=== PATIENT | female | born 1950 | race Caucasian/White ===

== ENCOUNTER → 2017-03-08 | Outpatient (CLI) | payer MEDICARE, OTHER | END | disposition home or self-care (01) | LOC: LAB.O 07:19 | PROVIDERS: ATTEND Family Medicine | DX: Z79.899 Other long term (current) drug therapy (principal); I10 Essential (primary) hypertension ==

== ENCOUNTER → 2017-11-27 | Outpatient (CLI) | payer MEDICARE, OTHER | LOC: LAB.O 07:22 | PROVIDERS: ATTEND Family Medicine | DX: E78.5 Hyperlipidemia, unspecified (principal); N18.2 Chronic kidney disease, stage 2 (mild); Z79.899 Other long term (current) drug therapy ==

== ENCOUNTER 2018-01-03 05:27 | Day surgery (SDC) | payer MEDICARE, OTHER ==
[2018-01-03] MEDS ORDERED: PROPARACAINE 0.5% OPHTH SOL 15 ML BTTL ONE (05:56)
[2018-01-03] MEDS ORDERED: TROP 1%/CYCLOPEN 1%/PHENYL 2% DROPS ONE (05:56)
[2018-01-03] MEDS ORDERED: MIDAZOLAM INJ 2 MG/2 ML VIAL ONE (07:34)
[2018-01-03] MEDS ORDERED: PROPARACAINE 0.5% OPHTH SOL 15 ML BTTL LEFT_EYE ONE (07:55)
[2018-01-03] MEDS ORDERED: LIDOCAINE 1% PF 2 ML AMP INJ ONE ×2 (08:06→08:20)
[2018-01-03] MEDS ORDERED: DEXAMETHASONE 0.1% OPHTH SOL 1 DROP LEFT_EYE ONE ×2 (08:07→08:24)
[2018-01-03] MEDS ORDERED: TOBRAMYCIN SULF 0.3 % OPHT SOL 1 DROP LEFT_EYE ONE ×2 (08:07→08:24)
[2018-01-03] MEDS ORDERED: BRIMONIDINE 0.2% OPHTH DROPS LEFT_EYE ONE ×2 (08:08→08:24)
== END 2018-01-03 09:10 | disposition home or self-care (01) ==
LOC: AMB 05:27
PROVIDERS: ATTEND Ophthalmology
DX: H25.12 Age-related nuclear cataract, left eye (principal); I10 Essential (primary) hypertension; J44.9 Chronic obstructive pulmonary disease, unspecified; I25.2 Old myocardial infarction; Z87.891 Personal history of nicotine dependence; Z91.041 Radiographic dye allergy status; Z88.2 Allergy status to sulfonamides; Z79.82 Long term (current) use of aspirin; Z79.899 Other long term (current) drug therapy
CPT/HCPCS: 00142; 66984; J2250

== ENCOUNTER 2018-01-17 06:03 | Day surgery (SDC) | payer MEDICARE, OTHER ==
[~2018-01-17 06:03] MED LIST: PROPARACAINE 0.5% OPHTH SOL 15 ML BTTL ONE; TROP 1%/CYCLOPEN 1%/PHENYL 2% DROPS ONE
[2018-01-17] MEDS ORDERED: MIDAZOLAM INJ 2 MG/2 ML VIAL ONE ×2 (07:42→08:06)
[2018-01-17] MEDS ORDERED: PROPARACAINE 0.5% OPHTH SOL 15 ML BTTL RIGHT_EYE ONE (07:55)
[2018-01-17] MEDS ORDERED: DEXAMETHASONE 0.1% OPHTH SOL 1 DROP RIGHT_EYE ONE ×3 (08:04→08:20)
[2018-01-17] MEDS ORDERED: LIDOCAINE 1% PF 2 ML AMP INJ ONE ×2 (08:04→08:08)
[2018-01-17] MEDS ORDERED: TOBRAMYCIN SULF 0.3 % OPHT SOL 1 DROP RIGHT_EYE ONE ×3 (08:05→08:20)
[2018-01-17] MEDS ORDERED: BRIMONIDINE 0.2% OPHTH DROPS RIGHT_EYE ONE ×3 (08:05→08:20)
== END 2018-01-17 09:01 | disposition home or self-care (01) ==
LOC: AMB 06:03
PROVIDERS: ATTEND Ophthalmology
DX: H25.12 Age-related nuclear cataract, left eye (principal); I10 Essential (primary) hypertension; I25.10 Atherosclerotic heart disease of native coronary artery without angina pectoris; Z88.2 Allergy status to sulfonamides; Z88.8 Allergy status to other drugs, medicaments and biological substances
CPT/HCPCS: 66984; J2250

== ENCOUNTER → 2018-08-06 | Outpatient (CLI) | payer MEDICARE, OTHER | LOC: LAB.O 10:11 | PROVIDERS: ATTEND Student in an Organized Health Care Education/Training Program | DX: I12.9 Hypertensive chronic kidney disease with stage 1 through stage 4 chronic kidney disease, or unspecified chronic kidney disease (principal); N18.2 Chronic kidney disease, stage 2 (mild) ==

== ENCOUNTER → 2018-08-11 | Outpatient (CLI) | payer MEDICARE, OTHER | LOC: LAB.O 08:21 | PROVIDERS: ATTEND Student in an Organized Health Care Education/Training Program | DX: I12.9 Hypertensive chronic kidney disease with stage 1 through stage 4 chronic kidney disease, or unspecified chronic kidney disease (principal); N18.4 Chronic kidney disease, stage 4 (severe); I25.10 Atherosclerotic heart disease of native coronary artery without angina pectoris; E87.5 Hyperkalemia ==

== ENCOUNTER → 2018-08-12 | Outpatient (CLI) | payer MEDICARE, OTHER ==
--- NOTE | 2018-08-12 17:04 | US ---
EXAM DESCRIPTION: Renal CLINICAL HISTORY: 67 years Female, CHRONIC KIDNEY DISEASE STAGE 4 COMPARISON: CT thorax dated June 10, 2010. TECHNIQUE: Multiple static transverse and longitudinal sonographic images of the bilateral kidneys were obtained. FINDINGS: Right kidney: Right kidney measures 7.9 x 3.4 x 4.1 cm and demonstrates mildly increased cortical echogenicity. No evidence of hydronephrosis or perinephric fluid collections. Left kidney: Left kidney measures 7.7 x 3.8 x 3.8 cm and demonstrates mild increased cortical echogenicity. No evidence of hydronephrosis or perinephric fluid collections. A 1.2 cm anechoic lesion in the lower pole with thin peripheral rim of hyperchogenicity, likely represents a cyst with the peripheral calcification, consistent with a Bosniak type II renal cyst. 2 small anechoic lesions in the lower pole measuring up to 9 mm likely represent simple cysts. The urinary bladder minimally distended limiting detail evaluation. IMPRESSION: 1. No evidence of hydronephrosis or perinephric fluid collections. 2. Mild increased cortical echogenicity in both kidneys consistent with medical renal disease. 3. 1.2 cm anechoic lesion with a thin peripheral rim of calcification in the lower pole of left kidney likely represents a Bosniak type II cyst. Electronically signed by: Jose Witt MD 08/12/2018 5:01 PM [facility]
== END ==
LOC: US 10:30
PROVIDERS: ATTEND Student in an Organized Health Care Education/Training Program
DX: I12.9 Hypertensive chronic kidney disease with stage 1 through stage 4 chronic kidney disease, or unspecified chronic kidney disease (principal); N18.4 Chronic kidney disease, stage 4 (severe); E87.5 Hyperkalemia; E78.5 Hyperlipidemia, unspecified

== ENCOUNTER → 2018-08-17 | Outpatient (CLI) | payer MEDICARE, OTHER | LOC: LAB.O 08:50 | PROVIDERS: ATTEND Student in an Organized Health Care Education/Training Program | DX: I12.9 Hypertensive chronic kidney disease with stage 1 through stage 4 chronic kidney disease, or unspecified chronic kidney disease (principal); I25.10 Atherosclerotic heart disease of native coronary artery without angina pectoris; N18.4 Chronic kidney disease, stage 4 (severe); E87.5 Hyperkalemia; E78.5 Hyperlipidemia, unspecified ==

== ENCOUNTER → 2018-09-02 | Outpatient (CLI) | payer MEDICARE, OTHER | LOC: LAB.O 09:28 | PROVIDERS: ATTEND Student in an Organized Health Care Education/Training Program | DX: I12.9 Hypertensive chronic kidney disease with stage 1 through stage 4 chronic kidney disease, or unspecified chronic kidney disease (principal); N18.4 Chronic kidney disease, stage 4 (severe); I25.10 Atherosclerotic heart disease of native coronary artery without angina pectoris; E87.5 Hyperkalemia; E78.5 Hyperlipidemia, unspecified ==

== ENCOUNTER 2018-10-18 10:45 | Emergency (ER) | payer MEDICARE, OTHER ==
[2018-10-18] MEDS ORDERED: SODIUM CHLORIDE 0.9% (FLUSH) 10 ML SYG IV PRN (10:55)
[2018-10-18] MEDS ORDERED: ASPIRIN (CHEWABLE) 81 MG TAB PO ONE (11:09)
--- NOTE | 2018-10-18 11:17 | RAD ---
EXAM DESCRIPTION: Chest,1 View CLINICAL HISTORY: 67 years Female, CHEST PAIN COMPARISON: Previous study June 10, 2010 TECHNIQUE: AP portable chest. FINDINGS: Heart size is normal with normal pulmonary vascularity. Hyperlucent upper lobes. No consolidating infiltrate. No pulmonary mass or worrisome nodule. No pneumothorax or pleural effusion. Bones are unremarkable. IMPRESSION: No acute process is identified in the chest. Electronically signed by: Nilo Vincent MD 10/18/2018 11:15 AM CDT
--- NOTE | 2018-10-18 11:27 | ED.PDOC ---
History of Present Illness - General Chief Complaint: Chest Pain/MS Stated Complaint: Pt complains of chest/back pain since yesterday AM Time Seen by Provider: 10/18/18 10:53 Source: patient Exam Limitations: no limitations - History of Present Illness Initial Comments: H/O MS [address] WHEELER, CARDS IN [place]. PT STATES THESE SX FEEL SIMILAR TO HER MS. 1 WK DRY COUGH WITH CHEST TIGHTNESS; PT WAS THINKING IT WAS THE NEW SINGULAIR RX OR HER ALLERGIES. YESTERDAY LUNGS FELT "FULL" WITH CHEST TIGHTNESS. THIS AM, TIGHNESS IN CHEST, FEELS COLD, NAUSEOUS, WEAK. Timing/Duration: 1 week, getting worse Severity/Quality: moderate, tightness Location: back - THORACIC BACK Chest Pain Radiation: back Activities at Onset: none Prior Chest Pain/Cardiac Workup: cardiac cath, heart attack Improving Factors: nothing Worsening Factors: nothing Nitro Today/Relief: no nitro taken today Aspirin Treatment Today: 81 mg x 1 Associated Symptoms: back pain Allergies/Adverse Reactions: Allergies Ezetimibe [From Zetia] Allergy (Verified 10/18/18 11:44) Statins Allergy (Verified 10/18/18 11:44) Sulfa Antibiotics Allergy (Verified 10/18/18 11:33) contrast Allergy (Uncoded 10/18/18 11:33) Home Medications: Ambulatory Orders Amlodipine Besylate 10 mg PO DAILY 10/18/18 Aspirin [Aspirin Adult Low Dose] 81 mg PO DAILY 10/18/18 Cranberry (Vaccinium Macrocarp [Cranberry] 500 mg PO DAILY 10/18/18 Dicyclomine HCl 10 mg PO Q6H PRN 10/18/18 Estradiol 2 mg PO SANJAY-OTH-DAY 10/18/18 Fexofenadine HCl [Yazmin Allergy] 180 mg PO DAILY 10/18/18 Fluticasone Propionate (Nasal) [Flonase] 100 mcg NA DAILY 10/18/18 Nebivolol HCl [Bystolic] 5 mg PO DAILY 10/18/18 hydrALAZINE HCl [(None)] 10 mg PO BID 10/18/18 Review of Systems - Review of Systems Constitutional: States: chills, weakness. Denies: diaphoresis EENTM: States: no symptoms reported Respiratory: States: cough, short of breath. Denies: wheezing Cardiology: States: chest pain. Denies: palpitations, syncope Genitourinary: States: no symptoms reported Musculoskeletal: Denies: joint pain, muscle pain, neck pain Skin: States: no symptoms reported Neurological: States: no symptoms reported Endocrine: States: no symptoms reported Hematologic/Lymphatic: States: no symptoms reported All other Systems: Reviewed and Negative Past Medical History (General) - Patient Medical History Hx Stroke: No Hx of COPD: No Hx Cardiac Disorders: Yes Hx Congestive Heart Failure: No Hx Hypertension: Yes Hx Diabetes: No Hx MRSA: No Surgical History: appendectomy - Vaccination History Hx Tetanus, Diphtheria Vaccination: Yes Hx Influenza Vaccination: No Hx Pneumococcal Vaccination: Yes - Social History Hx Tobacco Use: Yes Hx Alcohol Use: No Hx Substance Use: No Hx Substance Use Treatment: No Hx Depression: No - Female History Patient is a Female of Child Bearing Age (10 -59 yrs old): No Patient : No - tubal Family Medical History - Family History Mother Living Status: Unknown Hx Family Hypertension: Yes Hx Cardiac Disease: Yes Father Living Status: Unknown Hx Family Hypertension: Yes Hx Cardiac Disease: Yes Physical Exam - Physical Exam General Appearance: Alert, Well Groomed Eyes, Ears, Nose, Throat Exam: PERRL/EOMI, normal ENT inspection Neck: non-tender, full range of motion, supple, other - NO BRUIT. NO JVD. Respiratory: chest non-tender, lungs clear, normal breath sounds, no accessory muscle use Cardiovascular/Chest: normal peripheral pulses, regular rate, rhythm, no edema, no gallop, no JVD, no murmur Peripheral Pulses: radial,right: 2+, radial,left: 2+ Gastrointestinal/Abdominal: normal bowel sounds, non tender, soft Extremity: normal range of motion, non-tender, normal inspection, no pedal edema, no calf tenderness Neurologic: no motor/sensory deficits, alert, normal mood/affect, oriented x 3 Skin Exam: normal color, warm/dry Lymphatic: no adenopathy Progress - Progress Progress: 10/18/18 14:16 I REVIEWED LABS WITH PT AND FAMILY. CARD ENZ X2 NEG. WE WILL DO 3RD SET AND R/O MS IN ER. 10/18/18 15:40 PT DECLINES PAIN MED. ORDERING 3RD SET CARD ENZ. THEN DC TO HOME W/ F/U IF NEG. 10/18/18 16:27 LABS WNL: CXR, EKG, BNP, CARDIAC ENZ X 3. CMP WITH ELEV BUN AND CR; KNOWN CKD FOR WHICH SEES NEPHROLOGY. CBC WITH WBC 12 NEUTS 9. ACUTE VIRAL LOWER RESPIRATORY ILLNESS (COUGH, CHILLS, CHEST TIGHTNESS), THUS ABX NOT INDICATED. CARDIAC/MS W/U NEG WITH NSR AND NEG ENZ X 3. SAFE FOR DC TO HOME WITH F/U. 10/18/18 16:30 Departure - Departure Clinical Impression: Atypical chest pain, Viral respiratory illness, Cough, Neutrophilic leukocytosis, Generalized weakness Disposition: Discharge to Home or Self Care Condition: Good Departure Forms: ED Discharge - Pt. Copy, Patient Portal Self Enrollment Instructions: Chest Pain That Is Not Caused by the Heart (DC) Diet: resume usual diet Activity: increase activity as tolerated Referrals: RASHAAD RAMACHANDRAN [Primary Care Provider] - 1-2 Weeks Home Medications: Ambulatory Orders Amlodipine Besylate 10 mg PO DAILY 10/18/18 Aspirin [Aspirin Adult Low Dose] 81 mg PO DAILY 10/18/18 Cranberry (Vaccinium Macrocarp [Cranberry] 500 mg PO DAILY 10/18/18 Dicyclomine HCl 10 mg PO Q6H PRN 10/18/18 Estradiol 2 mg PO SANJAY-OTH-DAY 10/18/18 Fexofenadine HCl [Yazmin Allergy] 180 mg PO DAILY 10/18/18 Fluticasone Propionate (Nasal) [Flonase] 100 mcg NA DAILY 10/18/18 Nebivolol HCl [Bystolic] 5 mg PO DAILY 10/18/18 hydrALAZINE HCl [(None)] 10 mg PO BID 10/18/18
[2018-10-18 16:47] VITALS: BP 136/56; TEMP 97.8; O2SAT 97
== END 2018-10-18 16:47 | disposition home or self-care (01) ==
LOC: ER 10:45
DX: R07.89 Other chest pain (principal); J22 Unspecified acute lower respiratory infection; D72.828 Other elevated white blood cell count; R53.1 Weakness; I25.2 Old myocardial infarction; I10 Essential (primary) hypertension; Z87.891 Personal history of nicotine dependence; Z79.82 Long term (current) use of aspirin; Z79.899 Other long term (current) drug therapy; Z88.8 Allergy status to other drugs, medicaments and biological substances; Z88.2 Allergy status to sulfonamides; Z91.041 Radiographic dye allergy status

== ENCOUNTER → 2019-01-07 | Outpatient (CLI) | payer MEDICARE, OTHER | LOC: LAB.O 08:09 | PROVIDERS: ATTEND Student in an Organized Health Care Education/Training Program | DX: N18.4 Chronic kidney disease, stage 4 (severe) (principal); I10 Essential (primary) hypertension; E87.8 Other disorders of electrolyte and fluid balance, not elsewhere classified; D63.1 Anemia in chronic kidney disease; E55.9 Vitamin D deficiency, unspecified; N25.81 Secondary hyperparathyroidism of renal origin; N39.0 Urinary tract infection, site not specified; M10.9 Gout, unspecified ==

== ENCOUNTER → 2019-01-20 | Outpatient (CLI) | payer MEDICARE, OTHER ==
--- NOTE | 2019-01-20 13:35 | US ---
EXAM DESCRIPTION: Renal CLINICAL HISTORY: CHRONIC KIDNEY DISEASE COMPARISON: Ultrasound dated August 12, 2018. TECHNIQUE: Sonographic images of the kidneys were acquired bilaterally and submitted for review. FINDINGS: Right kidney Size:Small measuring 7.1 x 3.6 x 3.5 cm Echogenicity: Mild diffuse increased echogenicity commonly associated with medical renal disease. Parenchymal thickness and contour: Mild generalized cortical thinning. Pelvicalyceal dilatation: None Calculi: None Cysts: Several benign cysts are present. Masses:None Left kidney Size: Small measuring approximately 7.7 x 3.9 x 3.6 cm Echogenicity: Mild diffuse increased cortical echogenicity commonly associated with medical renal disease Parenchymal thickness and contour: Mild generalized cortical thinning. Pelvicalyceal dilatation: None Calculi: None Cysts: Several benign cysts are present. Masses:None Other findings IVC/aorta: Limited images are unremarkable. Urinary bladder: Normal IMPRESSION: Stable appearance to chronic medical renal disease. Electronically signed by: Polo Godinez MD 01/20/2019 1:33 PM CDT
== END ==
LOC: US 08:00
PROVIDERS: ATTEND Student in an Organized Health Care Education/Training Program
DX: I12.9 Hypertensive chronic kidney disease with stage 1 through stage 4 chronic kidney disease, or unspecified chronic kidney disease (principal); N18.4 Chronic kidney disease, stage 4 (severe); I25.10 Atherosclerotic heart disease of native coronary artery without angina pectoris; E87.5 Hyperkalemia; E78.5 Hyperlipidemia, unspecified

== ENCOUNTER → 2019-04-14 | Outpatient (CLI) | payer MEDICARE, OTHER | LOC: LAB.O 16:08 | PROVIDERS: ATTEND Family Medicine | DX: N18.3 Chronic kidney disease, stage 3 (moderate) (principal) ==

== ENCOUNTER → 2019-05-01 | Outpatient (CLI) | payer MEDICARE, OTHER | LOC: LAB.O 08:25 | PROVIDERS: ATTEND Student in an Organized Health Care Education/Training Program | DX: N18.4 Chronic kidney disease, stage 4 (severe) (principal); I10 Essential (primary) hypertension; I25.10 Atherosclerotic heart disease of native coronary artery without angina pectoris; E87.5 Hyperkalemia; E78.5 Hyperlipidemia, unspecified; E87.8 Other disorders of electrolyte and fluid balance, not elsewhere classified; E55.9 Vitamin D deficiency, unspecified; D63.1 Anemia in chronic kidney disease; N39.0 Urinary tract infection, site not specified; N25.81 Secondary hyperparathyroidism of renal origin ==

== ENCOUNTER → 2019-11-09 | Outpatient (CLI) | payer MEDICARE | LOC: LAB.O 11:04 | PROVIDERS: ATTEND Registered Nurse General Practice | DX: I12.9 Hypertensive chronic kidney disease with stage 1 through stage 4 chronic kidney disease, or unspecified chronic kidney disease (principal); N18.3 Chronic kidney disease, stage 3 (moderate) ==

== ENCOUNTER → 2019-11-17 | Outpatient (CLI) | payer MEDICARE | LOC: LAB.O 15:39 | PROVIDERS: ATTEND Registered Nurse General Practice | DX: M79.661 Pain in right lower leg (principal) ==

== ENCOUNTER → 2020-05-28 | Outpatient (CLI) | payer MEDICARE | LOC: LAB.O 12:28 | PROVIDERS: ATTEND Student in an Organized Health Care Education/Training Program | DX: N18.4 Chronic kidney disease, stage 4 (severe) (principal); I10 Essential (primary) hypertension; D63.1 Anemia in chronic kidney disease; N25.81 Secondary hyperparathyroidism of renal origin; N39.0 Urinary tract infection, site not specified; M10.9 Gout, unspecified ==

== ENCOUNTER → 2020-07-16 | Outpatient (CLI) | payer MEDICARE | LOC: LAB.O 14:19 | PROVIDERS: ATTEND Internal Medicine Interventional Cardiology | DX: I12.9 Hypertensive chronic kidney disease with stage 1 through stage 4 chronic kidney disease, or unspecified chronic kidney disease (principal); N18.4 Chronic kidney disease, stage 4 (severe) ==